=== PATIENT | female | born 1970 | race Caucasian/White ===

== ENCOUNTER 2021-06-17 19:26 | Emergency (ER) | payer OTHER ==
[2021-06-17] MEDS ORDERED: Sodium Chloride 0.9% 10 ML Syringe FLUSH PRN (19:40)
--- NOTE | 2021-06-17 20:23 | EDM.PDOC ---
ED HPI GENERAL MEDICAL PROBLEM - General Chief Complaint: Cardiovascular Problem Stated Complaint: POST SYNCOPAL EPISODE Time Seen by Provider: 06/17/21 19:45 Source of Information: Reports: Patient History Limitations: Reports: No Limitations - History of Present Illness INITIAL COMMENTS - FREE TEXT/NARRATIVE: Patient presents here to the ER after having a syncopal episode this morning about 10 AM where she was out in the garage with some tools on a shelf the next and you know she got lightheaded and passed out hit her head on the way down woke up possibly a few minutes later. She was able to get up and went inside the house and try to carry on the rest of the day but states she is just been a little dizzy. She also states that about 3 to 4 hours after she started getting a dull throbbing headache all over that she rates about a 5 out of 10. She has not taking anything for the medication. She also states she is not had headaches that often has been years since she has had one. She denies this being the worst headache of her life but again states she does not have them often. She does have a history of factor V Leiden TIAs approximately 3 years ago. She did have a history of multiple syncopal episodes back prior to December 2018 after she had a pacemaker placed though that it stopped syncopal episodes. She has no other complaints at this time. She denies any vision changes nausea vomiting unsteadiness lightheadedness trouble with ambulation no nausea or vomiting she has had p.o. today. She is not currently on any blood thinners besides an aspirin a day. Onset: Sudden Duration: Hour(s): Location: Reports: Head Associated Symptoms: Reports: Headaches. Denies: Confusion, Diaphoresis, Loss of Appetite, Malaise, Nausea/Vomiting, Seizure, Shortness of Breath, Syncope, Weakness - Related Data Allergies Allergy/AdvReac Type Severity Reaction Status Date / Time Antihistamines - Alkylamine Allergy Hives Verified 06/17/21 19:30 ED ROS GENERAL - Review of Systems Review Of Systems: See Below Constitutional: Reports: No Symptoms HEENT: Reports: No Symptoms Respiratory: Reports: No Symptoms Cardiovascular: Reports: No Symptoms Endocrine: Reports: No Symptoms GI/Abdominal: Reports: No Symptoms : Reports: No Symptoms Musculoskeletal: Reports: Neck Pain, Other (Patient does complain of having a little bit of soreness to the backside of her neck. No midline pain no pain with movement). Denies: No Symptoms Skin: Reports: No Symptoms Neurological: Reports: Dizziness, Headache, Numbness, Syncope, Other (The head headache is still there but the dizziness has resolved). Denies: Confusion, Paresthesia, Pre-Existing Deficit, Seizure, Trouble Speaking, Difficulty Walking, Weakness, Change in Speech, Gait Disturbance Psychiatric: Reports: No Symptoms Hematologic/Lymphatic: Reports: No Symptoms Immunologic: Reports: No Symptoms ED EXAM, GENERAL - Physical Exam Exam: See Below Exam Limited By: No Limitations General Appearance: Alert, WD/WN, No Apparent Distress Eye Exam: Bilateral Eye: EOMI, Normal Inspection, PERRL Ears: Normal External Exam, Normal Canal, Hearing Grossly Normal, Normal TMs Nose: Normal Inspection, Normal Mucosa, No Blood Throat/Mouth: Normal Inspection, Normal Lips, Normal Teeth, Normal Gums, Normal Oropharynx, Normal Voice, No Airway Compromise Head: Atraumatic, Normocephalic. No: Facial Swelling, Facial Tenderness, Sinus Tenderness Neck: Normal Inspection, Supple, Non-Tender, Full Range of Motion, Tender Lateral, Other (Left lateral tenderness palpation). No: Limited Range of Motion, Tender Midline Respiratory/Chest: No Respiratory Distress, Lungs Clear, Normal Breath Sounds, No Accessory Muscle Use, Chest Non-Tender Cardiovascular: Normal Peripheral Pulses, Regular Rate, Rhythm, No Edema, No Gallop, No JVD, No Murmur, No Rub GI/Abdominal: Normal Bowel Sounds, Soft, Non-Tender, No Organomegaly, No Distention. No: Guarding, Rigid, Rebound, Tender Back Exam: Normal Inspection, Full Range of Motion Extremities: Normal Inspection, Normal Range of Motion, Non-Tender, No Pedal Edema, Normal Capillary Refill Neurological: Alert, Oriented, CN II-XII Intact, Normal Cognition, Normal Gait, Normal Reflexes, No Motor/Sensory Deficits, Other (Cranial nerves II through XII are intact 5 of 5 strength upper extremity lower extremity bilateral equal spice fumigator she has equal facial sensation no noted sway) Psychiatric: Normal Affect, Normal Mood Skin Exam: Warm, Dry, Intact, Normal Color, No Rash #1 Interpretation EKG Date: 06/17/21 Time: 19:50 Rhythm: NSR [place]: Normal P-Wave: Present QRS: Normal ST-T: Normal QT: Normal Course - Vital Signs Text/Narrative:: CBC BMP EKG CT head secondary to history of factor V Leiden EKG shows normal sinus rhythm no acute findings noted Lab work within normal limits head CT high left parietal scalp soft tissue hematoma no underlying skull fractures no acute intracranial hemorrhage noted Patient was rechecked and states she is feeling better she is okay with being discharged home head instructions were given with verbal understanding needs and signs symptoms return here to the ER. She states she is going over her brother's house tonight let him know what is going on that way she can be checked on through the night. Last Recorded V/S: Last Vital Signs Temp 36.6 C 06/17/21 19:30 Pulse 108 H 06/17/21 19:30 Resp 20 06/17/21 19:30 BP 150/75 H 06/17/21 19:30 Pulse Ox 100 06/17/21 19:30 - Orders/Labs/Meds Orders: Active Orders 24 hr Category Date Time Status EKG Documentation Completion [RC] ASDIRECTED Care 06/17/21 19:40 Active Peripheral IV Care [RC] . DIRECTED Care 06/17/21 19:40 Active Head wo Cont [CT] Stat Exams 06/17/21 20:19 Taken Sodium Chloride 0.9% [Saline Flush] Med 06/17/21 19:40 Active 10 ml FLUSH ASDIRECTED PRN Peripheral IV Insertion Adult [OM.PC] Routine Oth 06/17/21 19:40 Ordered Medication Orders Sodium Chloride (Sodium Chloride 0.9% 10 Ml Syringe) 10 ml FLUSH ASDIRECTED PRN PRN Reason: Keep Vein Open Labs: Laboratory Tests 06/17/21 06/17/21 Range/Units 20:16 20:16 WBC 12.5 H (4.0-10.2) K/uL RBC 4.97 (3.77-5.09) M/uL Hgb 14.5 (11.7-15.5) g/dL Hct 42.8 (34.0-46.0) % MCV 86.1 (84.0-98.0) fL MCH 29.2 (28.2-33.3) pg MCHC 33.9 (31.7-36.0) g/dL RDW 13.4 (11.2-14.1) % Plt Count 334 (150-350) K/uL Neut % (Auto) 66.2 (45.0-80.0) % Lymph % (Auto) 25.7 (10.0-50.0) % [place] % (Auto) 7.9 (2.0-14.0) % Eos % (Auto) 0.0 (0.0-5.0) % Baso % (Auto) 0.2 (0.0-2.0) % Neut # (Auto) 8.25 H (1.40-7.00) K/uL Lymph # (Auto) 3.20 (0.50-3.50) K/uL [place] # (Auto) 0.98 (0.00-1.00) K/uL Eos # (Auto) 0.00 (0.00-0.50) K/uL Baso # (Auto) 0.02 (0.00-0.20) K/uL Sodium 138 (136-145) mmol/L Potassium 4.0 (3.5-5.1) mmol/L Chloride 103 (98-107) mmol/L Carbon Dioxide 24.6 (21.0-32.0) mmol/L Anion Gap 10.4 (7-15) meq/L BUN 11 (7-18) mg/dL Creatinine 0.79 (0.51-1.17) mg/dL Est Cr Clr Drug Dosing 80.64 mL/min Estimated GFR (MDRD) > 60 mL/min Glucose 122 H (70-99) mg/dL Calcium 8.7 (8.5-10.1) mg/dL Meds: Medications Generic Name Dose Route Start Last Admin Trade Name Freq PRN Reason Stop Dose Admin Sodium Chloride 10 ml 06/17/21 19:40 Sodium Chloride 0.9% 10 Ml Syringe FLUSH ASDIRECTED PRN Keep Vein Open Discontinued Medications Generic Name Dose Route Start Last Admin Trade Name Freq PRN Reason Stop Dose Admin Acetaminophen 1,000 mg 06/17/21 20:31 06/17/21 20:40 Acetaminophen 500 Mg Tab PO 06/17/21 20:32 1,000 mg ONETIME ONE Administration Departure - Departure Time of Disposition: 21:35 Disposition: Home, Self-Care 01 Condition: Good Clinical Impression: Syncopal episodes, Head injury with loss of consciousness Referrals: Alem Fox PA [Primary Care Provider] - Forms: ED Department Discharge Sepsis Event Note (ED) - Evaluation Sepsis Screening Result: No Definite Risk - Focused Exam Vital Signs: Vital Signs Temp Pulse Resp BP Pulse Ox 06/17/21 19:30 36.6 C 108 H 20 150/75 H 100 - Problem List & Annotations (1) Syncopal episodes SNOMED Code(s): 290190132 Code(s): R55 - SYNCOPE AND COLLAPSE Status: Acute Current Visit: No (2) Head injury with loss of consciousness SNOMED Code(s): 11403882 Code(s): S06.9X9A - UNSP INTRACRANIAL INJURY W LOC OF UNSP DURATION, INIT S tatus: Acute Current Visit: No - My Orders Last 24 Hours: My Active Orders 06/17/21 19:40 EKG Documentation Completion [RC] ASDIRECTED Peripheral IV Care [RC] . DIRECTED Sodium Chloride 0.9% [Saline Flush] 10 ml FLUSH ASDIRECTED PRN Peripheral IV Insertion Adult [OM.PC] Routine 06/17/21 20:19 Head wo Cont [CT] Stat - Assessment/Plan Last 24 Hours: My Active Orders 06/17/21 19:40 EKG Documentation Completion [RC] ASDIRECTED Peripheral IV Care [RC] . DIRECTED Sodium Chloride 0.9% [Saline Flush] 10 ml FLUSH ASDIRECTED PRN Peripheral IV Insertion Adult [OM.PC] Routine 06/17/21 20:19 Head wo Cont [CT] Stat
[2021-06-17] MEDS ORDERED: Acetaminophen 500 MG Tab PO ONE (20:31)
[2021-06-17 20:36] LABS: ANION GAP 10.4 meq/L (7-15); CHLORIDE,CL 103 mmol/L (98-107); SODIUM,NA 138 mmol/L (136-145)
== END 2021-06-17 22:05 | disposition home or self-care (01) ==
LOC: LL.ED 19:26
DX: S06.9X9A Unspecified intracranial injury with loss of consciousness of unspecified duration, initial encounter (principal); R55 Syncope and collapse; Z88.8 Allergy status to other drugs, medicaments and biological substances; W22.8XXA Striking against or struck by other objects, initial encounter
CPT/HCPCS: 36415; 70450; 80048; 85025; 93005; 93010; 99284; 99284-25; A9270-GY

== ENCOUNTER 2022-08-26 10:07 | Day surgery (SDC) | payer OTHER ==
[~2022-08-26 10:07] MED LIST: Propofol 200 MG/20 ML SDV ONE
[2022-08-26] MEDS ORDERED: Lactated Ringers 1,000 ML IV SCH (10:45)
== END 2022-08-26 12:36 | disposition home or self-care (01) ==
LOC: LL.SDS 10:07 → MERGE 11:50 → LL.SDS 12:36
PROVIDERS: ATTEND Surgery
DX: K21.9 Gastro-esophageal reflux disease without esophagitis (principal); E78.5 Hyperlipidemia, unspecified; I47.1 Supraventricular tachycardia; I49.5 Sick sinus syndrome; D68.51 Activated protein C resistance; Z88.8 Allergy status to other drugs, medicaments and biological substances; Z86.73 Personal history of transient ischemic attack (TIA), and cerebral infarction without residual deficits; Z79.899 Other long term (current) drug therapy; Z88.5 Allergy status to narcotic agent; Z87.891 Personal history of nicotine dependence; Z95.0 Presence of cardiac pacemaker; Z79.82 Long term (current) use of aspirin
CPT/HCPCS: J2704

== ENCOUNTER 2023-09-15 11:42 | Day surgery (SDC) | payer OTHER ==
[~2023-09-15 11:42] MED LIST changes: +Midazolam 1 MG/ML 2 ML SDV ONE
[2023-09-15] MEDS ORDERED: Sodium Chloride 0.9% 10 ML Syringe FLUSH PRN (11:45)
[2023-09-15] MEDS ORDERED: Lactated Ringers 1,000 ML IV SCH (11:45)
== END 2023-09-15 15:30 | disposition home or self-care (01) ==
LOC: LL.SDS 11:42
PROVIDERS: ATTEND Surgery
DX: Z12.11 Encounter for screening for malignant neoplasm of colon (principal); E78.5 Hyperlipidemia, unspecified; I47.10 Supraventricular tachycardia, unspecified; K21.9 Gastro-esophageal reflux disease without esophagitis; I47.20 Ventricular tachycardia, unspecified; D68.51 Activated protein C resistance; E66.01 Morbid (severe) obesity due to excess calories; Z86.010 Personal history of colon polyps; Z95.0 Presence of cardiac pacemaker; Z68.31 Body mass index [BMI] 31.0-31.9, adult
CPT/HCPCS: 00812; J2250; J2704; J7120

== ENCOUNTER 2023-11-08 19:22 | Emergency (ER) | payer OTHER ==
[2023-11-08] MEDS ORDERED: Sodium Chloride 0.9% 10 ML Syringe FLUSH PRN (19:33)
== END 2023-11-08 20:00 | disposition left against medical advice (07) ==
LOC: LL.ED 19:22
DX: R55 Syncope and collapse (principal); R41.0 Disorientation, unspecified; E78.00 Pure hypercholesterolemia, unspecified; Z95.0 Presence of cardiac pacemaker; Z79.82 Long term (current) use of aspirin; Z79.899 Other long term (current) drug therapy; Z88.6 Allergy status to analgesic agent; Z88.8 Allergy status to other drugs, medicaments and biological substances
CPT/HCPCS: 82947; 99284

== ENCOUNTER 2024-01-22 18:39 | Emergency (ER) | payer OTHER ==
[2024-01-22] MEDS ORDERED: Sodium Chloride 0.9% 10 ML Syringe FLUSH PRN (18:50)
[2024-01-22 19:10] LABS: BASOPHILS ABSOLUTE AUTO 0.02 K/uL (0.00-0.20); BASOPHILS PERCENT AUTO 0.2 % (0.0-2.0); EOSINOPHILS ABSOLUTE AUTO 0.01 K/uL (0.00-0.50); EOSINOPHILS PERCENT AUTO 0.1 % (0.0-5.0); HEMATOCRIT 42.2 % (34.0-46.0); LYMPHOCYTES ABSOLUTE AUTO 3.27 K/uL (0.50-3.50); MEAN CORPUSCULAR HEMOGLOBIN 28.7 pg (28.2-33.3); MEAN CORPUSCULAR HGB CONC 33.2 g/dL (31.7-36.0); MEAN CORPUSCULAR VOLUME 86.7 fL (84.0-98.0); MONOCYTES ABSOLUTE AUTO 0.81 K/uL (0.00-1.00); MONOCYTES PERCENT AUTO 9.9 % (2.0-14.0); NEUTROPHILS ABSOLUTE AUTO 4.07 K/uL (1.40-7.00); NEUTROPHILS PERCENT AUTO 49.8 % (45.0-80.0); PLATELET COUNT,PLT 284 K/uL (150-350); RED BLOOD CELL COUNT 4.87 M/uL (3.77-5.09); RED CELL DISTRIBUTION WIDTH 13.7 % (11.2-14.1); WHITE BLOOD CELL COUNT,WBC 8.2 K/uL (4.0-10.2)
[2024-01-22] MEDS: Sodium Chloride 0.9% 500 ML IV SCH (19:35)
[2024-01-22 19:37] LABS: ALANINE AMINOTRANSFERASE,ALT 60 U/L (12-78); ALBUMIN 3.7 g/dL (3.4-5.0); ALKALINE PHOSPHATASE 109 IU/L (46-116); ANION GAP 10.5 meq/L (7-15); ASPARTATE AMNIOTRANSFERASE,AST 36 U/L (15-37); BILIRUBIN TOTAL 0.5 mg/dL (0.2-1.0); BLOOD UREA NITROGEN,BUN 10 mg/dL (7-18); CALCIUM 9.2 mg/dL (8.5-10.1); CARBON DIOXIDE,CO2 23.5 mmol/L (21.0-32.0); CHLORIDE,CL 103 mmol/L (98-107); CREATININE 0.98 mg/dL (0.51-1.17); GLUCOSE RANDOM 107 mg/dL (70-99); MAGNESIUM 2.1 mg/dL (1.8-2.4); POTASSIUM,K 3.7 mmol/L (3.5-5.1); PRO B-TYPE NATRIUR PEPT,BNPPRO 13 pg/mL (0-125); PROTEIN TOTAL,TP 7.6 g/dL (6.4-8.2); SODIUM,NA 137 mmol/L (136-145)
[2024-01-22 19:38] LABS: ESTIMATED GFR 69 mL/min (>=60)
[2024-01-22 20:41] LABS: APPEARANCE,URINE CLEAR; BILIRUBIN,URINE NEGATIVE (NEGATIVE); COLOR,URINE YELLOW; GLUCOSE,URINE NEGATIVE (NEGATIVE); KETONES,URINE NEGATIVE (NEGATIVE); LEUKOCYTE ESTERASE,URINE NEGATIVE (NEGATIVE); NITRITE,URINE NEGATIVE (NEGATIVE); OCCULT BLOOD,URINE NEGATIVE (NEGATIVE); PROTEIN,URINE NEGATIVE (NEGATIVE)
[2024-01-22 20:47] LABS: AMPHETAMINES SCREEN, URINE NEGATIVE (NEGATIVE); BARBITURATE SCREEN,URINE NEGATIVE (NEGATIVE); BENZODIAZEPINES SCREEN,URINE NEGATIVE (NEGATIVE); COCAINE METABOLITES,URINE NEGATIVE (NEGATIVE); EDDP,URINE SCREEN NEGATIVE (NEGATIVE); METHAMPHETAMINES SCREEN, URINE NEGATIVE (NEGATIVE); TCA SCREEN,URINE NEGATIVE (NEGATIVE); THC SCREEN,URINE 50 NG/ML NEGATIVE (NEGATIVE)
[2024-01-22 20:48] LABS: BUPRENORPHINE SCREEN,URINE NEGATIVE (NEGATIVE); OXYCODONE SCREEN,URINE NEGATIVE (NEGATIVE)
[2024-01-22] MEDS ORDERED: amLODIPine 5 MG Tab PO ONE (20:55)
== END 2024-01-22 21:30 | disposition home or self-care (01) ==
LOC: LL.ED 18:39
DX: R55 Syncope and collapse (principal); R41.0 Disorientation, unspecified; I10 Essential (primary) hypertension; E78.00 Pure hypercholesterolemia, unspecified; Z88.8 Allergy status to other drugs, medicaments and biological substances; Z79.82 Long term (current) use of aspirin; Z79.899 Other long term (current) drug therapy
CPT/HCPCS: 36415; 70450; 71045; 72125; 80053; 80305; 81003; 82947; 83605; 83735; 83880; 84443; 84484; 85025; 85379; 93005; 96360; 96361; 99284; J7040